=== PATIENT | male | born 1950 | race Caucasian/White ===

== ENCOUNTER 2021-07-08 20:24 | Emergency (ER) | payer OTHER ==
[~2021-07-08] VITALS: Ht 180.3 cm; Wt 93.0 kg
[2021-07-08] MEDS ORDERED: ADULT LOW DOSE81 M1 (20:42)
[2021-07-08] MEDS ORDERED: CRESTOR5 MG (20:42)
[2021-07-08] MEDS ORDERED: CHILDREN'S ASPI81 MG (20:43)
[2021-07-08] MEDS ORDERED: TOPROL XL25 MG (20:43)
[2021-07-08] MEDS ORDERED: TAMS0.4C (20:43)
[2021-07-08] MEDS ORDERED: CELEBREX100 MG PO (22:24)
[2021-07-08] MEDS ORDERED: PERCOCET 5-3251 EACH PO (22:24)
== END 2021-07-08 22:33 ==
LOC: ER 20:24
DX: S42.291A Other displaced fracture of upper end of right humerus, initial encounter for closed fracture (principal); V80.010A Animal-rider injured by fall from or being thrown from horse in noncollision accident, initial encounter; Y93.9 Activity, unspecified; Y92.9 Unspecified place or not applicable; Y99.9 Unspecified external cause status; I10 Essential (primary) hypertension